=== PATIENT | male | born 1985 | race Caucasian/White ===

== ENCOUNTER 2022-11-24 09:09 | Outpatient (REF) | payer OTHER, SELFPAY ==
--- NOTE | ~2022-11-24 | XR_ITS ---
EXAMINATION: XR CERVICAL SPINE CLINICAL INFORMATION: Cervical radiculopathy. COMPARISON: None. TECHNIQUE: Frontal, lateral and odontoid views are obtained. FINDINGS: Vertebral body heights are normal. There is mild reversal of the normal lordotic curvature. The disc spaces are well-maintained. No acute fracture or spondylolisthesis is seen. The posterior elements are intact. There are calcifications of the ligamentum nuchae. There is no prevertebral soft tissue swelling. The dens and C7-T1 interface are normal. XR/XR cervical spine 3V IMPRESSION: 1. No acute fracture or spondylolisthesis is seen. 2. The cervical disc spaces are well-maintained. 3. There is mild reversal of the normal lordotic curvature, which can be associated with muscle spasm.
== END 2022-11-24 09:10 | disposition home or self-care (01) ==
LOC: HO.HOSX 09:09
PROVIDERS: Visit Provider Physical Medicine & Rehabilitation
DX: M54.12 Radiculopathy, cervical region (principal); M79.18 Myalgia, other site
CPT/HCPCS: 72040

== ENCOUNTER 2022-11-24 09:09 | Outpatient (AMB) | payer OTHER, SELFPAY ==
--- NOTE | 2022-11-24 09:23 | A.OFFVIS_ITS ---
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 States he is not sure how to explain his pain, however states his pain started about 6 weeks in his neck. Then had radiating pain from elbow to arm and feels pressure and tightness in shoulder. Has tingling and numbness in his left hand when he puts his hand down. Currently he is experiencing discomfort between his shoulder blades. No injury he can recall. Allergies penicillamine Allergy (Severe, Verified 11/24/22 09:28) body shuts down Medication List - Last Reconciled 11/24/22 by Karen Lara MD No Known Home Meds HPI HPI Comments History of Present Illness Details Referred from [facility]. Started in September, woke up with ache in between shoulder blades. It has now progressed to radiating to left arm. Feels pressure pointing to middle of left arm, near elbow. Nova numbness on left forearm and hand. When he leaned forward, symptoms worse on left arm. Would be better if he brings up left arm. Few days ago pain jumped back to upper back and neck, but no more symptoms on left arm. Denies inciting injuries. Right handed. 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 Now, pain on shoulder blader, left side, possibly rhomboids. No more numbness. 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 [facility] Social History (Updated 11/24/22 @ 09:29 by Patsy Delong [facility]) Current occupational status: employed Current occupation: rt hand / Cello player Review of Systems Const All systems reviewed & are unremarkable except as noted in HPI and below Physical Exam Vital Signs: BMI result Body Mass Index 28.0 Constitutional: Patient appears to be in no acute distress, well nourished and well developed. Patient was appropriately conversant and oriented. Good historian. MSK: Inspection reveals appropriate head and neck positioning. No pain with palpation over the neck musculature. No tenderness along trapezius or rhomboids or cervical paraspinals. Cervical ROM was full. Spurling's sign positive on left. Bilateral shoulder, elbow and wrist ROM WNL. No ligamentous laxity or crepitance. No increased effusion. Negative carpal compression. Negative Tinel sign. Strength is 5/5 in all muscle groups tested. No increased tone noted. Neurological: Neurologic examination of the upper and lower extremities was nonfocal with intact sensation, muscle stretch reflexes and without focal motor deficits . Butler?s negative bilaterally. Babinski was down going bilaterally. Clonus was negative. Gait is non-antalgic without loss of balance. Results Reviewed Results Reviewed: I reviewed records from the following: [facility] Assessment & Plan Assessment & Plan (1) Cervical radiculitis: Code(s): M54.12 - Radiculopathy, cervical region (2) Myofascial pain: Code(s): M79.18 - Myalgia, other site Plan Suspect that he had myofascial strain from heavy lifting back in September. His pain level is already much improved. There is some concern that there is positive Spurling sign on exam, but no red flags for cervical myelopathy. No neurologic deficits on exam. If this is myofascial, would predict this to get better in the next few months. He may continue exercises and I gave him a list of safe exercises to do at home. Another option is to refer him to PT. We will do cervical spine x-rays today for baseline. Watch out for red flags. Will re-evaluate in 6 weeks. Assessment and plan discussed with patient, and patient was agreeable. All questions were answered thoroughly. Karen Lara MD, DAVID Board Certified, [place] [employer] and Rehabilitation (ABPMR) Board Certified, [place] [employer] Electro[employer] (ABEM) Orders: Orders XR cervical spine 3V Today M54.12 - Radiculopathy, cervical region Coding Level of Care Code New Pt Level 4 (56240) Diagnoses Cervical radiculitis M54.12 Myofascial pain M79.18
[2022-11-24 09:28] VITALS: BMI 28.0
== END 2022-11-24 10:10 | disposition home or self-care (01) ==
PROVIDERS: Visit Provider Physical Medicine & Rehabilitation
DX: M54.12 Radiculopathy, cervical region (principal); M79.18 Myalgia, other site
CPT/HCPCS: 99204

== ENCOUNTER 2023-01-05 08:55 | Outpatient (AMB) | payer OTHER, SELFPAY ==
[2023-01-05 08:59] VITALS: BMI 28.0
--- NOTE | 2023-01-05 08:59 | MHC.OFFVIS ---
Intake Vital Signs 01/05/23 08:59 Height 5 ft 10 in Weight 195 lb BMI 28.0 Intake Visit Reasons: OV- Numbness of left Upper extremity Intake Note: Izabel 37 yr old male presents today for his follow up visit for his Cervical radiculitis & myofascial pain. States he has been traveling and has had mild discomfort however he has started to see a chiropractor. States his pain and discomfort has improved. Allergies penicillamine Allergy (Severe, Verified 01/05/23 09:05) body shuts down HPI HPI Comments History of Present Illness Details Referred from [facility]. Started in September, woke up with ache in between shoulder blades. It has now progressed to radiating to left arm. Feels pressure pointing to middle of left arm, near elbow. Nova numbness on left forearm and hand. When he leaned forward, symptoms worse on left arm. Would be better if he brings up left arm. Few days ago pain jumped back to upper back and neck, but no more symptoms on left arm. Denies inciting injuries. Right handed. 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 Now, pain on shoulder blader, left side, possibly rhomboids. No more numbness. No weakness Since the last time I saw him, he has gone to chiropractor with good results. Many days pain is 0/10 but sometimes like today 2/10. Not as bad as it used to. Notes that when he leans forward with left arm pressure, he could feel it on left arm. But he actually denies numbness on fingers. Xray done last visit showed disc space preserved but loss of normal lordosis. [facility] Social History Current occupational status: employed Current occupation: rt hand / Cello player Physical Exam Vital Signs: BMI result Body Mass Index 28.0 Constitutional: Patient appears to be in no acute distress, well nourished and well developed. Patient was appropriately conversant and oriented. Good historian. MSK: Inspection reveals appropriate head and neck positioning. No pain with palpation over the neck musculature. No tenderness along trapezius or rhomboids or cervical paraspinals. Cervical ROM was full. Spurling negative. Negative carpal compression. Negative Tinel sign. Strength is 5/5 in all muscle groups tested. No increased tone noted. Neurological: Neurologic examination of the upper and lower extremities was nonfocal with intact sensation, muscle stretch reflexes and without focal motor deficits . Butler?s negative bilaterally. Gait is non-antalgic without loss of balance. Results Reviewed Results Reviewed: Independently reviewed a cervical x-ray done last visit: Preserved disc spaces, loss of lordosis XR CERVICAL SPINE CLINICAL INFORMATION: Cervical radiculopathy. COMPARISON: None. TECHNIQUE: Frontal, lateral and odontoid views are obtained. FINDINGS: Vertebral body heights are normal. There is mild reversal of the normal lordotic curvature. The disc spaces are well-maintained. No acute fracture or spondylolisthesis is seen. The posterior elements are intact. There are calcifications of the ligamentum nuchae. There is no prevertebral soft tissue swelling. The dens and C7-T1 interface are normal. XR/XR cervical spine 3V IMPRESSION: 1. No acute fracture or spondylolisthesis is seen. 2. The cervical disc spaces are well-maintained. 3. There is mild reversal of the normal lordotic curvature, which can be associated with muscle spasm. I reviewed records from the following: [facility] Assessment & Plan Assessment & Plan (1) Numbness of left hand: Code(s): R20.0 - Anesthesia of skin (2) Myofascial pain: Code(s): M79.18 - Myalgia, other site Plan Pain thought to be myofascial is now improved, with chiropractor and rest. I encouraged him to go back to exercise, and stretching is very important. I also suggested doing an EMG to rule out CTS and UNE, it is possible with repetitive motion/playing his cello. Assessment and plan discussed with patient, and patient was agreeable. All questions were answered thoroughly. Karen Lara MD, DAVID Board Certified, [place] [employer] and [employer] (ABPMR) Board Certified, [place] [employer] Electro[employer]ostic [employer] (ABEM) Orders: Orders NE electromyogram (EMG) Today R20.0 - Anesthesia of skin NE nerve conduction velocity Today R20.0 - Anesthesia of skin Coding Level of Care Code Est Pt Level 3 (37267) Diagnoses Numbness of left hand R20.0 Myofascial pain M79.18
== END 2023-01-05 09:32 | disposition home or self-care (01) ==
PROVIDERS: Visit Provider Physical Medicine & Rehabilitation
DX: R20.0 Anesthesia of skin (principal); M79.18 Myalgia, other site
CPT/HCPCS: 99213

== ENCOUNTER → 2023-01-05 08:55 | Outpatient (BNVA) | payer OTHER, SELFPAY | PROVIDERS: Visit Provider Physical Medicine & Rehabilitation | DX: M79.18 Myalgia, other site (principal); R20.0 Anesthesia of skin | CPT/HCPCS: 99212 ==